=== PATIENT | male | born 1950 | race Caucasian/White ===

== ENCOUNTER → 2016-12-05 | Outpatient (CLI) | payer OTHER, BC ==
[~2016-12-05] MED LIST: ALFU10TA2 PO; CRS/10 PO; FOLI1POW10 PO; METO50TA16 PO; OMEG12006 PO; QUIN40TA18 PO; WARF3TAB6 PO
[2016-12-05 09:38] LABS: ALT/SGPT 29 U/L (12-78); BLOOD UREA NITROGEN 17 mg/dl (7-18); BUN/CREATININE RATIO 16.9 (10-20); CALCIUM 8.6 mg/dl (8.5-10.1); CARBON DIOXIDE 26 mmol/L (21-32); CHLORIDE 109 mmol/L (98-107); CHOLESTEROL 142 mg/dl (0-200); CREATININE 0.99 mg/dl (0.60-1.40); GLUCOSE 104 mg/dl (70-99); SODIUM 141 mmol/L (136-145)
[2016-12-05 09:43] LABS: % FREE PSA 17.3 %; CHOLESTEROL/HDL RATIO 4.3; FREE PSA 0.69 ng/ml; HDL CHOLESTEROL 33 mg/dl; LDL CHOLESTEROL CALCULATED 71 mg/dl; TRIGLYCERIDES 191 mg/dl (0-150); VERY LOW DENSITY LIPOPROT CALC 38 mg/dl
[2016-12-05 10:13] LABS: ESTIMATED AVERAGE GLUCOSE 126 mg/dl; HA1C FLAG Normal (Normal)
--- NOTE | 2016-12-10 10:01 | CODING QUERY MEDICAL NECESSITY ---
SUPPORTING DIAGNOSIS NEEDED Dr. Liriano, A supporting diagnosis is required for the test/procedure performed on this patient in order for us to be reimbursed by the patient's insurance. Please provide a supporting diagnosis for the following test/procedure listed below next to the test name along with your signature. *If there is no additional diagnosis for this patient that would support the following test/procedure please document that below next to the test/procedure. Test(s)/Procedure(s) that require a supporting diagnosis: * 56104 GLYCATED HEMOGLOBIN DIAGNOSIS: DATE OF SERVICE: 12/05/16 Provider Signature: Date: Thank you Timothy Rodriguez [facility] Information Management Once completed, please kindly fax back to [phone] For questions please call [phone]
== END | disposition home or self-care (01) ==
LOC: C.LAB1850 07:54
PROVIDERS: ATTEND Family Medicine
DX: E78.00 Pure hypercholesterolemia, unspecified (principal); I10 Essential (primary) hypertension; R73.03 Prediabetes; N40.1 Benign prostatic hyperplasia with lower urinary tract symptoms; R97.20 Elevated prostate specific antigen [PSA]

== ENCOUNTER → 2017-02-24 | Outpatient (CLI) | payer OTHER, BC ==
[~2017-02-24] VITALS: Ht 175.3 cm; Wt 93.3 kg
[2017-02-24 15:09] VITALS: BP 118/74; PULSE 97; Ht 175.3 cm; Wt 93.3 kg
== END | disposition home or self-care (01) ==
LOC: C.NEUR 14:55
PROVIDERS: ATTEND Physician Assistant
DX: G47.30 Sleep apnea, unspecified (principal)

== ENCOUNTER → 2017-12-24 | Outpatient (CLI) | payer OTHER, BC | END | disposition home or self-care (01) | LOC: C.PATHSPEC 11:36 | PROVIDERS: ATTEND Physician Assistant | DX: L57.0 Actinic keratosis (principal) ==

== ENCOUNTER → 2018-03-30 | Outpatient (CLI) | payer OTHER, BC ==
[~2018-03-30] MED LIST changes: +FLUO5CRE TOP; +QUIN1TAB49 PO; -QUIN40TA18 PO
[2018-03-30 09:44] LABS: BASO % 0.5 %; BASO ABS # 0.04 K/uL (0-0.2); EOS % 3.9 %; EOS ABS # 0.29 K/uL (0-0.5); HEMATOCRIT 44.8 % (42-52); HEMOGLOBIN 15.1 g/dL (14.0-18.0); IG# 0.02 K/uL (0.00-0.02); MEAN CELL VOLUME 91.1 fL (80-100); MEAN CORPUSCULAR HEMOGLOBIN 30.7 pg (25-34); MEAN CORPUSCULAR HGB CONC 33.7 g/dl (32-36); MEAN PLATELET VOLUME 10.7 fL (7.4-10.4); MONO % 11.3 %; MONO ABS # 0.84 K/uL (0.11-0.59); NEUT ABS # 3.92 K/uL (1.4-6.5); PLATELET COUNT 234 K/uL (130-400); RED CELL DISTRIBUTION WIDTH CV 12.9 % (11.5-14.5); RED CELL DISTRIBUTION WIDTH SD 42.9 fL (36.4-46.3); WHITE BLOOD COUNT 7.41 K/uL (4.8-10.8)
[2018-03-30 10:05] LABS: ALBUMIN 3.5 gm/dl (3.4-5.0); ALKALINE PHOSPHATASE 55 U/L (45-117); ALT/SGPT 30 U/L (12-78); AST/SGOT 26 U/L (15-37); BLOOD UREA NITROGEN 17 mg/dl (7-18); CALCIUM 8.6 mg/dl (8.5-10.1); CARBON DIOXIDE 26 mmol/L (21-32); CHOLESTEROL 126 mg/dl (0-200); GLUCOSE 109 mg/dl (70-99); LDL CHOLESTEROL CALCULATED 58 mg/dl; POTASSIUM 4.2 mmol/L (3.5-5.1); SODIUM 139 mmol/L (136-145); TOTAL PROTEIN 7.1 gm/dl (6.4-8.2)
== END | disposition home or self-care (01) ==
LOC: C.LAB1850 08:13
PROVIDERS: ATTEND Internal Medicine Cardiovascular Disease
DX: Z11.59 Encounter for screening for other viral diseases (principal); I10 Essential (primary) hypertension; N40.0 Benign prostatic hyperplasia without lower urinary tract symptoms

== ENCOUNTER → 2018-04-07 | Day surgery (SDC) | payer OTHER, BC ==
[2018-04-01 09:14] VITALS: Ht 170.2 cm; Wt 91.8 kg
[~2018-04-07] VITALS: Ht 170.2 cm; Wt 91.8 kg
[~2018-04-07] MED LIST changes: +SODIUM CHLORIDE 0.9% 500ML 500 ML IV ONE
[2018-04-07 10:10] VITALS: TEMP 36.6
--- NOTE | 2018-04-07 11:02 | Endo History and Physical ---
History & Physical Date of Service: Apr 07, 2018. Chief Complaint: Tubular adenoma of colon Referring Physician: Dr Liriano History of Present Illness 67 yo CM who presents for colonoscopy secondary to history of colon polyps. Past Medical History Atrial Fibrillation, Male Genitourinary Prob., High Cholesterol, Sleep Apnea, Hypertension Past Surgical History Hx Cardiac Surgery: Yes (L GREATER SAPHENOUS VEIN RADIOFREQUENCY ABLATION 10/31) Hx Internal Defibrillator: No Hx Pacemaker: No Hx Abdominal Surgery: Yes (INGUINAL HERNIA REPAIR) Hx of Implantable Prosthesis: No Hx Post-Op Nausea and Vomiting: No Hx Cancer Surgery: No Hx Thoracic Surgery: No Hx Orthopedic: Yes (RT/LT KNEE ARTHROSCOPY, RT/LT RCR) Hx Urinary Tract Surgery: No Family History None Social History Smoking Status: Never Smoker Hx Substance Use: No Hx Alcohol Use: Yes (3 DRINKS A WEEK) Allergies Coded Allergies: No Known Allergies (Unverified , 04/07/18) Current Medications Reported Home Medications Medications Dose Route/Sig Max Daily Dose Days Date Category Uroxatral (Alfuzosin HCl) 10 Mg Tab 10 Mg PO DAILY 06/21/14 Reported Crestor (Rosuvastatin Calcium) 10 Mg Tab 10 Mg PO Q2D 01/15/13 Reported Accupril (Quinapril HCl) 40 Mg Tab 20 Mg PO DAILY 01/15/13 Reported [place] 3 ([place]-3 Fatty Acids) 1 Cap Cap 1,000 Mg PO DAILY 01/15/13 Reported Lopressor (Metoprolol Tartrate) 50 Mg Tab 50 Mg PO BID 01/15/13 Reported Folic Acid 1 Pow Pow 1 Mg PO DAILY 01/15/13 Reported Jantoven (Warfarin Sodium) 3 Mg Tab 3 Mg PO DAILY 01/15/13 Reported Vital Signs Weight (Kilograms): 91.82 Height (Feet): 5 Height (Inches): 7 Physical Exam General Appearance: WD/WN, no apparent distress Respiratory/Chest: Auscultation: breath sounds normal Cardiovascular: Heart Auscultation: RRR Abdomen: Bowel Sounds: normal Inspection & Palpation: soft, non-distended, no tenderness, guarding & rebound Assessment and Plan Assessment: 67 yo CM who presents for colonoscopy secondary to history of colon polyps. Plan: Proceed with colonoscopy.
--- NOTE | 2018-04-07 11:34 | GI REPORT ---
Patient Name: Odell Bean Procedure Date: 04/07/2018 11:07 AM Date of : 1950 Admit Type: Outpatient Age: 67 Gender: Male Attending MD: Rhys Newell DO Procedure: Colonoscopy Providers: Rhys Newell DO Referring MD: Michelle Liriano Md Indications: High risk colon cancer surveillance: Personal history of colonic polyps Medicines: Monitored Anesthesia Care Complications: No immediate complications. Estimated Blood Loss: Estimated blood loss: none. Procedure: Pre-Anesthesia Assessment: - Prior to the procedure, a History and Physical was performed, and patient medications and allergies were reviewed. The patient's tolerance of previous anesthesia was also reviewed. The risks and benefits of the procedure and the sedation options and risks were discussed with the patient. All questions were answered, and informed consent was obtained. Prior Anticoagulants: The patient has taken Coumadin (warfarin), last dose was 7 days prior to procedure. ASA Grade Assessment: II - A patient with mild systemic disease. After reviewing the risks and benefits, the patient was deemed in satisfactory condition to undergo the procedure. After I obtained informed consent, the scope was passed under direct vision. Throughout the procedure, the patient's blood pressure, pulse, and oxygen saturations were monitored continuously. The Scope was introduced through the anus and advanced to the terminal ileum. The colonoscopy was performed without difficulty. The patient tolerated the procedure well. The quality of the bowel preparation was good. The terminal ileum, ileocecal valve, appendiceal orifice, and rectum were photographed. Findings: The perianal and digital rectal examinations were normal. A 3 mm polyp was found in the ascending colon. The polyp was sessile. The polyp was removed with a cold snare. Resection and retrieval were complete. Multiple small-mouthed diverticula were found in the sigmoid colon. Non-bleeding internal hemorrhoids were found during retroflexion. The hemorrhoids were small. Impression: - One 3 mm polyp in the ascending colon, removed with a cold snare. Resected and retrieved. - Diverticulosis in the sigmoid colon. - Non-bleeding internal hemorrhoids. Recommendation: - Resume previous diet. - Continue present medications. - Repeat colonoscopy for surveillance based on pathology results. - Return to primary care physician as previously scheduled. Rhys Newell DO 04/07/2018 11:34:11 AM This report has been signed electronically. Note Initiated On: 04/07/2018 11:07 AM Number of Addenda: 0 I attest to the content of the Intraoperative Record and orders documented therein, exceptions below {[id number]}
[2018-04-07 12:02] VITALS: BP 148/74; PULSE 69; O2SAT 96
--- NOTE | 2018-04-07 12:07 | Discharge Instructions ---
Endoscopy Patient Instructions Date / Procedure(s) Performed Apr 07, 2018. Colonoscopy Allergy Information Coded Allergies: No Known Allergies (Unverified , 04/07/18) Discharge Date / Findings Apr 07, 2018. Colon polyp Internal hemorrhoids Medication Instructions Stopped Medication(s): Warfaring 3 mg OK to resume all medications today as prescribed Reported Home Medications Medications Dose Route/Sig Max Daily Dose Days Date Category Uroxatral (Alfuzosin HCl) 10 Mg Tab 10 Mg PO DAILY 06/21/14 Reported Crestor (Rosuvastatin Calcium) 10 Mg Tab 10 Mg PO Q2D 01/15/13 Reported Accupril (Quinapril HCl) 40 Mg Tab 20 Mg PO DAILY 01/15/13 Reported [place] 3 ([place]-3 Fatty Acids) 1 Cap Cap 1,000 Mg PO DAILY 01/15/13 Reported Lopressor (Metoprolol Tartrate) 50 Mg Tab 50 Mg PO BID 01/15/13 Reported Folic Acid 1 Pow Pow 1 Mg PO DAILY 01/15/13 Reported Jantoven (Warfarin Sodium) 3 Mg Tab 3 Mg PO DAILY 01/15/13 Reported Provider Instructions Activity Restrictions - No exercising or heavy lifting for 24 hours. - Do not drink alcohol the day of the procedure. - Do not drive a car or operate machinery until the day after the procedure. - Do not make any important decisions or sign important papers in 24 hours after the procedure. Following Day: - Return to full activity which may include returning to work/school. Diet Start your diet with liquids and light foods (jello, soup, juice, toast). Then eat your usual diet if not nauseated. Treatment For Common After Affects For mild abdominal pain, bloating, or excessive gas: - Rest - Eat lightly - Lie on right side Follow-Up Information Follow-up with Dr Liriano as scheduled Anesthesia Information What You Should Know You have had a procedure that required some medicine to reduce anxiety and discomfort. This treatment is called moderate sedation. After receiving the treatment, you may be sleepy, but you will be able to breathe on your own. The effects of the treatment may last for several hours. Follow these instructions along with Activity/Diet recommendations noted above: * Do NOT do anything where dizziness or clumsiness would be dangerous. * Rest quietly at home today, then you can be up and about tomorrow. * Have a responsible person stay with you the rest of today. * You may have had an I.V. today. If so, you may take the dressing off later today. Recommendations Call your doctor if: * Trouble breathing * Continuous vomiting for more than 24 hours * Temperature above 101 degrees * Severe abdominal pain or bloating * Pain not relieved by pain medicine ordered * There is increased drainage or redness from any incision * A large amount of rectal bleeding greater than 2-3 tablespoons. (If you had a polyp/s removed or have hemorrhoids, a small amount of blood - from the rectum is to be expected.) * You have any unanswered questions or concerns. IN THE EVENT OF A SERIOUS EMERGENCY, GO TO THE NEAREST EMERGENCY ROOM Your discharge instructions were prepared by provider Rhys Newell. Patient Instructions Signature Page Odell Bean Patient (or Guardian) Signature/Date: I have read and understand the instructions given to me by my caregivers. Caregiver/RN/Doctor Signature/Date: The above-named patient and/or guardian has received patient instructions on this date. + Original Patient Signature Page (only) stays with chart. Please make copy for patient.
--- NOTE | 2018-04-07 12:10 | Anesthesiology Progress Note ---
Anesthesia Post Op Note Date & Time Apr 07, 2018 at 12:10 Vital Signs Pain Intensity: 0 Vital Signs Past 12 Hours Date Time Temp Pulse Resp B/P (MAP) Pulse Ox O2 Delivery O2 Flow Rate FiO2 04/07/18 12:02 69 18 148/74 (98) 96 Room Air 04/07/18 11:48 60 18 134/75 (94) 95 Room Air 04/07/18 11:33 76 16 110/63 (79) 96 Room Air 04/07/18 10:10 36.6 62 20 123/88 (100) 95 Room Air Notes Mental Status: alert / awake / arousable, participated in evaluation Pt Amnestic to Procedure: Yes Nausea / Vomiting: adequately controlled Pain: adequately controlled Airway Patency, RR, SpO2: stable & adequate BP & HR: stable & adequate Hydration State: stable & adequate Anesthetic Complications: no major complications apparent
== END | disposition home or self-care (01) ==
LOC: C.GI 09:28
PROVIDERS: ATTEND Internal Medicine
DX: Z12.11 Encounter for screening for malignant neoplasm of colon (principal); D12.2 Benign neoplasm of ascending colon; K57.30 Diverticulosis of large intestine without perforation or abscess without bleeding; K64.8 Other hemorrhoids; G47.33 Obstructive sleep apnea (adult) (pediatric); I48.91 Unspecified atrial fibrillation; E78.00 Pure hypercholesterolemia, unspecified; I10 Essential (primary) hypertension; Z86.010 Personal history of colon polyps; Z79.899 Other long term (current) drug therapy; Z79.01 Long term (current) use of anticoagulants